=== PATIENT | male | born 1960 | race Caucasian/White ===

== ENCOUNTER 2020-04-10 02:18 | Inpatient (IN) | payer BC, SELFPAY ==
[~2020-04-10] VITALS: Ht 180.3 cm; Wt 119.0 kg
[2020-04-10 02:48] LABS: HEMOGLOBIN 18.1 gm/dl (14.0-17.5); RED BLOOD COUNT 6.1 M/UL (4.20-5.50); WHITE BLOOD COUNT 19.4 K/UL (4.5-11.0)
[2020-04-10 07:19] LABS: HEMOGLOBIN 17.7 gm/dl (14.0-17.5); RED BLOOD COUNT 5.71 M/UL (4.20-5.50)
[2020-04-10 07:21] LABS: WHITE BLOOD COUNT 14.1 K/UL (4.5-11.0)
[2020-04-11 04:02] LABS: HEMOGLOBIN 15.4 gm/dl (14.0-17.5); RED BLOOD COUNT 5.04 M/UL (4.20-5.50); WHITE BLOOD COUNT 9.8 K/UL (4.5-11.0)
[2020-04-11 04:22] LABS: BUN/CREATININE RATIO 16 (0-10)
[2020-04-12 04:41] LABS: HEMOGLOBIN 16.7 gm/dl (14.0-17.5); RED BLOOD COUNT 5.48 M/UL (4.20-5.50); WHITE BLOOD COUNT 9.4 K/UL (4.5-11.0)
[2020-04-12 05:01] LABS: BUN/CREATININE RATIO 16 (0-10)
[2020-04-13 05:16] LABS: RED BLOOD COUNT 4.88 M/UL (4.20-5.50)
--- NOTE | 2020-04-13 05:52 | NUR ---
RESTED INTERMITTENTLY T/O NIGHT, DENIES COMPLAINTS OF PAIN/DISCOMFORT/NAUSEA/VOMITING, VS STABLE, NO ACUTE DISTRESS NOTED
[2020-04-13 05:53] LABS: BUN/CREATININE RATIO 11 (0-10)
[2020-04-13] MEDS ORDERED: MIRALAX17 GM PO (13:07)
== END 2020-04-13 14:18 | disposition home or self-care (01) | DRG 394 ==
LOC: ER1 02:18 → CDU 04:21 → MED SURG 4 04:21
PROVIDERS: Emergency Medicine; Family Medicine; Surgery; ADMIT Internal Medicine
DX: K42.0 Umbilical hernia with obstruction, without gangrene (principal); E87.2 Acidosis; K56.690 Other partial intestinal obstruction; N17.9 Acute kidney failure, unspecified; I10 Essential (primary) hypertension; K21.9 Gastro-esophageal reflux disease without esophagitis; E66.9 Obesity, unspecified; D72.829 Elevated white blood cell count, unspecified; Z20.822 Contact with and (suspected) exposure to COVID-19; E86.0 Dehydration; R73.9 Hyperglycemia, unspecified; Z90.49 Acquired absence of other specified parts of digestive tract; Z68.36 Body mass index [BMI] 36.0-36.9, adult
CPT/HCPCS: 36415; 71045; 74019; 80048; 80053; 81001; 82962; 83036; 83605; 83690; 84484; 85025; 85610; 85730; 93005; 96365; 96375; 99285; J1650; J1956; J2270; J2405; J2543; J3480; J7030; Q9963; Q9967; U0002

== ENCOUNTER → 2021-09-04 | Outpatient (CLI) | payer BC ==
[~2021-09-04] MED LIST: MIRALAX17 GM PO
== END ==
LOC: HEART 5 14:42
DX: I73.9 Peripheral vascular disease, unspecified (principal)

== ENCOUNTER → 2021-09-16 | Outpatient (CLI) | payer BC | LOC: US 13:30 | DX: I73.9 Peripheral vascular disease, unspecified (principal) | CPT/HCPCS: 93925 ==